=== PATIENT | male | born 1995 | race African-American/Black ===

== ENCOUNTER 2019-02-07 05:46 | Emergency (ER) | payer BC ==
[~2019-02-07] VITALS: Ht 170.2 cm; Wt 72.6 kg
--- NOTE | 2019-02-07 05:53 | Emergency Room Report ---
History of Present Illness General Chief Complaint: Seizure Source: Patient, Family Member Present Illness HPI The patient presents after having a generalized tonic-clonic seizure that lasted 5 minutes witnessed by his sister. This is the third of forth seizure he has had. Is not taking medication right now is under evaluation for starting medication at this time. The patient bit his tongue. Accu-Chek was normal via EMS. According to his mother in the past they have refrained from starting him on medication because he felt his seizure activity was related to cocaine use. The patient also has a history of renal dysfunction because his CPK was high in the past and he suffered from rhabdomyolysis. No fevers, chills, chest pain, palpitations, nausea, vomiting, diarrhea, dysuria , abdominal pain, shortness of breath, depression according to mom Allergies: Coded Allergies: No Known Allergies (Unverified , 02/07/19) Patient History Limited by: medical condition Past Medical History: see triage record Social History: Denies: smoking, alcohol use, drug use - Murmur Social History Narrative Lives in [place] Reviewed Nursing Documentation: PMH: Agreed; PSxH: Agreed Nursing Documentation-PMH Past Medical History: No History, Except For Hx Seizures: Yes Review of Systems All Other Systems: negative except mentioned in HPI Physical Exam Vital Signs Date Time Temp Pulse Resp B/P (MAP) Pulse Ox O2 Delivery O2 Flow Rate FiO2 02/07/19 05:45 98.1 87 20 123/62 (82) 98 Room Air Sp02 EP Interpretation: reviewed, normal General Appearance: well appearing, no apparent distress, Postictal Head: normocephalic, atraumatic Eyes: bilateral eye normal inspection, bilateral eye PERRL, bilateral eye EOMI ENT: moist mucus membranes - lingual macerations Neck: supple, no bony tend Respiratory: chest non-tender, lungs clear, normal breath sounds Cardiovascular #1: regular rate, rhythm Cardiovascular #2: 2+ radial (R) Gastrointestinal: normal inspection, non tender, no mass, non-distended, decreased bowel sounds, scaphoid Musculoskeletal: back normal, normal range of motion Neurologic: responsive, historic sites registrar III-XII nml as tested, motor strength/tone normal, DTRs symmetric, sensory intact Psychiatric: other - Postictal Skin: no rash Medical Decision Making Diagnostic Impression: Primary Impression: Seizure Additional Impression: Renal insufficiency ER Course The patient presents post generalized tonic-clonic seizure with a history and no treatment. Differential includes epilepsy, electrolyte imbalance, drug withdrawal amongst others. Is a nonfocal neurologic exam at this time and has had prior CT scans that have been normal and therefore CT is not indicated at this time. However chest x-ray is indicated to exclude aspiration. Also EKG and labs indicated. The patient will be treated with Ativan and Keppra. EKG without injury. Chest x-ray clear. Labs unremarkable aside from renal insufficiency and minimally elevated CPK. Tox screen is negative. Discussed with sister and mother. We are starting Keppra. Improved. Tylenol is ordered as the patient has a mild headache and also some tongue pain. Signed out to Dr. Vargas until more awake. Laboratory Tests Test 02/07/19 06:07 White Blood Count 12.9 K/UL (4.8-10.8) H Red Blood Count 5.67 M/UL (4.70-6.10) Hemoglobin 16.8 G/DL (14.2-18.0) Hematocrit 53.1 % (42.0-52.0) H Mean Corpuscular Volume 94 FL (80-99) Mean Corpuscular Hemoglobin 29.6 PG (27.0-31.0) Mean Corpuscular Hemoglobin Concent 31.6 G/DL (32.0-36.0) L Red Cell Distribution Width 12.4 % (11.6-14.8) Platelet Count 259 K/UL (150-450) Mean Platelet Volume 6.5 FL (6.5-10.1) Neutrophils (%) (Auto) 55.6 % (45.0-75.0) Lymphocytes (%) (Auto) 36.2 % (20.0-45.0) Monocytes (%) (Auto) 5.3 % (1.0-10.0) Eosinophils (%) (Auto) 1.3 % (0.0-3.0) Basophils (%) (Auto) 1.5 % (0.0-2.0) Urine Color Pale yellow Urine Appearance Clear Urine pH 5 (4.5-8.0) Urine Specific [place] 1.025 (1.005-1.035) Urine Protein 3+ (NEGATIVE) H Urine Glucose (UA) Negative (NEGATIVE) Urine Ketones 1+ (NEGATIVE) H Urine Blood 3+ (NEGATIVE) H Urine Nitrite Negative (NEGATIVE) Urine Bilirubin Negative (NEGATIVE) Urine Urobilinogen Normal MG/DL (0.0-1.0) Urine Leukocyte Esterase Negative (NEGATIVE) Urine RBC 2-4 /HPF (0 - 0) H Urine WBC 0 /HPF (0 - 0) Urine Squamous Epithelial Cells None /LPF (NONE/OCC) Urine Bacteria Few /HPF (NONE) Sodium Level 138 MMOL/L (136-145) Potassium Level 3.9 MMOL/L (3.5-5.1) Chloride Level 100 MMOL/L (98-107) Carbon Dioxide Level 12 MMOL/L (21-32) L Anion Gap 26 mmol/L (5-15) H Blood Urea Nitrogen 22 mg/dL (7-18) H Creatinine 1.6 MG/DL (0.55-1.30) H Estimate Glomerular Filtration Rate 53.4 mL/min (>60) Glucose Level 164 MG/DL (74-106) H Calcium Level 9.4 MG/DL (8.5-10.1) Total Bilirubin 0.4 MG/DL (0.2-1.0) Aspartate Amino Transferase (AST) 28 U/L (15-37) Alanine Aminotransferase (ALT) 25 U/L (12-78) Alkaline Phosphatase 63 U/L (46-116) Total Creatine Kinase 183 U/L (26-308) Troponin I 0.000 ng/mL (0.000-0.056) Total Protein 7.7 G/DL (6.4-8.2) Albumin 4.5 G/DL (3.4-5.0) Globulin 3.2 g/dL Albumin/Globulin Ratio 1.4 (1.0-2.7) Serum Alcohol < 3 mg/dL Rhythm Strip Diag. Results EP Interpretation: yes Rhythm: NSR, no PVC's, no ectopy Chest X-Ray Diagnostic Results Chest X-Ray Diagnostic Results : Chest X-Ray Ordered: Yes # of Views/Limited/Complete: 1 View Indication: Other EP Interpretation: Yes Interpretation: no consolidation, no effusion, no pneumothorax Impression: No acute disease Last Vital Signs Date Time Temp Pulse Resp B/P (MAP) Pulse Ox O2 Delivery O2 Flow Rate FiO2 02/07/19 09:07 98.3 68 15 112/72 100 Room Air Status: improved Disposition: HOME, SELF-CARE Condition: Improved Scripts Levetiracetam (KEPPRA) 500 Mg Tablet 500 MG ORAL EVERY 12 HOURS, #60 TAB 0 Refills Prov: Demetrius Boucher MD 02/07/19 Demetrius Boucher MD Feb 07, 2019 05:53
[2019-02-07] MEDS ORDERED: levETIRAcetam 500 MG in D5W 110 ML IV ONE (06:00)
[2019-02-07] MEDS ORDERED: LORazepam Inj 2mg/ml 1ml IV ONE (06:00)
--- NOTE | 2019-02-07 06:00 | NUR ---
ED Nurse Note: Patient as BIBA from home due to seizure. Per patient's sister he is visiting her in [place]. Sister states that seizure last 2 min. Patient presented diaphoretic, drouzy, AAO x4, VSS at this time, BS 176 at bed side.
[2019-02-07 06:18] VITALS: BP 123/62
[2019-02-07 06:23] LABS: BASOPHILS % (AUTO) 1.5 % (0.0-2.0); EOSINOPHILS % (AUTO) 1.3 % (0.0-3.0); HEMATOCRIT 53.1 % (42.0-52.0); HEMOGLOBIN 16.8 G/DL (14.2-18.0); LYMPHOCYTES % (AUTO) 36.2 % (20.0-45.0); MEAN CORPUSCULAR VOLUME 94 FL (80-99); MONOCYTES % (AUTO) 5.3 % (1.0-10.0); NEUTROPHILS % (AUTO) 55.6 % (45.0-75.0); PLATELET COUNT 259 K/UL (150-450); RED BLOOD COUNT 5.67 M/UL (4.70-6.10); RED CELL DISTRIBUTION WIDTH 12.4 % (11.6-14.8); WHITE BLOOD COUNT 12.9 K/UL (4.8-10.8)
[2019-02-07 06:38] LABS: APPEARANCE,URINE CLEAR; BILIRUBIN, URINE NEGATIVE (NEGATIVE); COLOR,URINE PALE YELLOW; GLUCOSE, URINE (UA) NEGATIVE (NEGATIVE); KETONES,URINE 1+ (NEGATIVE); LEUKOCYTE ESTERASE ,URINE NEGATIVE (NEGATIVE); NITRITE,URINE NEGATIVE (NEGATIVE); PH,URINE 5 (4.5-8.0); PROTEIN,URINE 3+ (NEGATIVE); UROBILINOGEN,URINE NORMAL MG/DL (0.0-1.0)
[2019-02-07 06:40] LABS: ALANINE AMINOTRANSFERASE 25 U/L (12-78); ALBUMIN 4.5 G/DL (3.4-5.0); ALBUMIN/GLOBULIN RATIO 1.4 (1.0-2.7); ALKALINE PHOSPHATASE 63 U/L (46-116); ANION GAP 26 mmol/L (5-15); ASPARTATE AMINO TRANSFERASE 28 U/L (15-37); BILIRUBIN,TOTAL 0.4 MG/DL (0.2-1.0); BLOOD UREA NITROGEN 22 mg/dL (7-18); CALCIUM 9.4 MG/DL (8.5-10.1); CARBON DIOXIDE 12 MMOL/L (21-32); CHLORIDE 100 MMOL/L (98-107); CREATINE KINASE 183 U/L (26-308); CREATININE 1.6 MG/DL (0.55-1.30); POTASSIUM 3.9 MMOL/L (3.5-5.1); SODIUM 138 MMOL/L (136-145)
[2019-02-07] MEDS ORDERED: KEPPRA500 M4 ORAL (07:08)
--- NOTE | 2019-02-07 07:10 | NUR ---
HAND-OFF: Report given to [facility]MA Dumont.
--- NOTE | 2019-02-07 07:22 | NUR ---
ED Nurse Note: REPORT RECEIVED FROM UMA BURROUGHS. PT SLEEPING PEACEFULLY IN BED IN NAD. EASILY AROUSABLE TO VOICE. SISTER REMAINS AT BEDSIDE. SEIZURE PROTOCOL IN PLACE. VSS.
[2019-02-07 07:23] VITALS: BP 106/69
--- NOTE | 2019-02-07 09:06 | NUR ---
ED Nurse Note: PT LAYING PEACEFULLY IN BED IN NAD. AOX4. PRESCRIPTION AND DISCHARGE PAPERWORK EXPLAINED TO PT. PT VERBALIZES UNDERSTANDING AND ALL QUESTIONS ANSWERED. PRESCRIPTION AND DISCHARGE PAPERWORK GIVEN TO PT, IV AND ID WRISTBAND REMOVED. PT WALKED OUT OF ER WITH STEADY GAIT AND ALL BELONGINGS.
[2019-02-07 09:07] VITALS: BP 112/72
--- NOTE | 2019-02-07 13:00 | Diagnostic Imaging Report ---
Indication: Dyspnea Comparison: None A single view chest radiograph was obtained. Findings: Cardiomediastinal appearance is within normal limits for age. The lungs are clear. Pulmonary vascularity is appropriate. The diaphragmatic contour is smooth and costophrenic angles are sharp. No pleural effusions are identified. The bones are unremarkable. Impression: No acute findings
== END 2019-02-07 09:08 | disposition home or self-care (01) ==
LOC: EDBD 05:46 → EMR 06:21
DX: G40.909 Epilepsy, unspecified, not intractable, without status epilepticus (principal); N28.9 Disorder of kidney and ureter, unspecified; R51 Headache
CPT/HCPCS: 36415; 71045; 80053; 81003; 82550; 84484; 85025; 96361; 96374; 96375; 99284; G0480; J1953; 80329